=== PATIENT | male | born 1960 | race African-American/Black ===

== ENCOUNTER 2020-12-23 12:30 | Inpatient (IN) | payer OTHER ==
[2020-12-23 13:09] LABS: Hemoglobin 15.9 g/dL (14.0-18.0); Mean Corpuscular Hemoglobin 31.8 pg (27.0-31.0); Mean Corpuscular Volume 93.5 fL (78.0-98.0); Mean Platelet Volume 7.5 fL (7.4-10.4); Platelet Count 192 thou/uL (130-400); RBC Distribution Width 12.3 % (11.5-14.5); Red Blood Cell (RBC) Count 5.01 mill/uL (4.70-6.10); White Blood Cell (WBC) Count 10.7 thou/uL (4.8-10.8)
[2020-12-23] MEDS ORDERED: Acetaminophen 500 MG TAB ONE (13:15)
[2020-12-23] MEDS ORDERED: Ketorolac Tromethamine 30 MG/ML VIAL ONE (13:16)
[2020-12-23] MEDS ORDERED: cefTRIAXone\\ROCEPHIN 2 GM VIAL ONE (13:16)
[2020-12-23 13:28] LABS: ALT (SGPT) 13 U/L (8-55); AST (SGOT) 19 U/L (5-34); Alkaline Phosphatase 90 U/L (40-110); Anion Gap 15 mmol/L (10-20); BUN (Urea Nitrogen) 15 mg/dL (8.4-25.7); Bilirubin, Total 2.5 mg/dL (0.2-1.2); Calc. Creatinine Clearance 0 mL/min (70-130); Calcium 9.2 mg/dL (7.8-10.44); Carbon Dioxide 21 mmol/L (23-31); Chloride 103 mmol/L (98-107); Globulin 3.4 g/dL (2.4-3.5); Glucose 112 mg/dL (80-115); Potassium 3.9 mmol/L (3.5-5.1); Protein, Total 7.4 g/dL (5.8-8.1); Sodium 135 mmol/L (136-145)
[2020-12-23 13:35] LABS: Band 12 % (5-11); Lymphocytes 2 % (21-51); MDiff Complete? YES; Monocytes 9 % (0-10); Neutrophil 76 % (42-75); Platelet Morphology Comment Appears Adequate; RBC Morphology Normal
[2020-12-23 14:42] LABS: Bilirubin Small (Negative); Blood, Urine Moderate (Negative); Glucose, Urine (Dipstick) Negative (Negative); Ketone, Urine 15 mg/dL (Negative); Leukocyte Large (Negative); Nitrite Positive (Negative); Protein, Urine (Dipstick) Trace mg/dL (Neg-Trace); Specific Gravity, Urine 1.025 (1.005-1.030)
[2020-12-23 14:44] LABS: Clarity Hazy (Clear)
[2020-12-23 14:50] LABS: Bacteria/HPF 4+ HPF (None Seen); Squamous Epithelial 0-3 HPF (0-3); WBC/HPF Greater than 50 HPF (0-3)
[2020-12-23] MEDS ORDERED: Bisacodyl 5 MG TAB PO PRN (16:31)
[2020-12-23] MEDS ORDERED: Guaifenesin DM 100-10/5 ML UDCUP PO PRN (16:31)
[2020-12-23 18:41] LABS: SARS-CoV-2 NAA Rapid Test Not Detected (NotDetected)
[2020-12-23] MEDS: Cefepime 1 GM in Sodium Chloride 0.9% 100 ML IVPB SCH (20:19)
[2020-12-23] MEDS: HYDROcodone/Acetaminophen 5/325 mg Tablet PO PRN (20:20)
[2020-12-23] MEDS: Sodium Chloride 0.9% 1,000 ML IV SCH (20:20)
[2020-12-23] MEDS: Famotidine/PF 20 mg/2ml Vial SLOW IVP SCH (20:20)
[2020-12-23 23:46] VITALS: BMI 26.4
[2020-12-24] MEDS: Sodium Chloride 0.9% 1,000 ML IV SCH (03:10)
[2020-12-24 06:20] LABS: #Eosinphils 0.1 thou/uL (0.0-0.7); #Lymphocytes 0.9 thou/uL (1.20-3.40); #Monocytes 0.9 thou/uL (0.11-0.59); #Neutrophils 9.1 thou/uL (1.40-6.50); %Basophils 0.1 % (0.0-1.0); %Eosinophils 0.6 % (0.0-10.0); %Lymphocytes 8.4 % (21.0-51.0); %Monocytes 8.5 % (0.0-10.0); %Neutrophils 82.4 % (42.0-75.0); Hemoglobin 14.3 g/dL (14.0-18.0); Mean Corpuscular Hemoglobin 31.2 pg (27.0-31.0); Mean Corpuscular Volume 94.6 fL (78.0-98.0); Platelet Count 176 thou/uL (130-400); RBC Distribution Width 12.4 % (11.5-14.5)
[2020-12-24 06:44] LABS: Anion Gap 11 mmol/L (10-20); BUN (Urea Nitrogen) 21 mg/dL (8.4-25.7); Calc. Creatinine Clearance 110 mL/min (70-130); Calcium 8.6 mg/dL (7.8-10.44); Carbon Dioxide 24 mmol/L (23-31); Chloride 104 mmol/L (98-107); Glucose 102 mg/dL (80-115); Potassium 3.6 mmol/L (3.5-5.1); Sodium 135 mmol/L (136-145)
[2020-12-24] MEDS: Enoxaparin Sodium 40 MG/0.4 ML SYRINGE SC SCH (08:24)
[2020-12-24] MEDS: Famotidine/PF 20 mg/2ml Vial SLOW IVP SCH ×3 (08:24→22:09)
[2020-12-24] MEDS: Cefepime 1 GM in Sodium Chloride 0.9% 100 ML IVPB SCH ×2 (08:24→22:01)
[2020-12-24] MEDS: HYDROcodone/Acetaminophen 5/325 mg Tablet PO PRN (18:10)
[2020-12-25] MEDS: Famotidine/PF 20 mg/2ml Vial SLOW IVP SCH ×2 (08:17→22:26)
[2020-12-25] MEDS: Cefepime 1 GM in Sodium Chloride 0.9% 100 ML IVPB SCH ×2 (08:17→22:26)
[2020-12-25] MEDS: Enoxaparin Sodium 40 MG/0.4 ML SYRINGE SC SCH (08:17)
[2020-12-25] MEDS: HYDROcodone/Acetaminophen 5/325 mg Tablet PO PRN (08:20)
[2020-12-26] MEDS: Cefepime 1 GM in Sodium Chloride 0.9% 100 ML IVPB SCH (07:47)
[2020-12-26] MEDS: Famotidine/PF 20 mg/2ml Vial SLOW IVP SCH (07:48)
[2020-12-26] MEDS: Enoxaparin Sodium 40 MG/0.4 ML SYRINGE SC SCH (07:48)
[2020-12-26 11:48] VITALS: BP 141/88; TEMP 97.9
== END 2020-12-26 16:07 | DRG 871 ==
LOC: SUATTDRO 12:30 → ERS 12:30 → T4-B 16:11
PROVIDERS: ADMIT Hospitalist; ATTEND Hospitalist
DX: A41.51 Sepsis due to Escherichia coli [E. coli] (principal); J96.01 Acute respiratory failure with hypoxia; N30.01 Acute cystitis with hematuria; Z20.822 Contact with and (suspected) exposure to COVID-19; F20.9 Schizophrenia, unspecified; F41.9 Anxiety disorder, unspecified; Z83.3 Family history of diabetes mellitus; Z79.899 Other long term (current) drug therapy
CPT/HCPCS: 0240U; 36415; 71045; 74176; 80048; 80053; 81003; 81015; 83605; 84484; 85025; 85379; 87040; 87077; 87086; 87186; 93005; 96365; 96375; J0692; J0696; J1650; J1885; J3490; S0028